=== PATIENT | male | born 1935 | race Caucasian/White ===

== ENCOUNTER 2017-01-03 15:36 | Inpatient (IN) | payer MEDICARE, BC ==
[~2017-01-03] VITALS: Ht 172.7 cm; Wt 88.5 kg
[2017-01-03 18:20] VITALS: BP 166/76
[2017-01-03 19:00] VITALS: BP 155/76
[2017-01-03] MEDS ORDERED: POLYETHYLENE GLYCOL 3350 17 GM PACKET. PO PRN (19:45)
[2017-01-03] MEDS ORDERED: fentaNYL PF VIAL 100 MCG/2 ML VIAL IV PRN (19:45)
[2017-01-03] MEDS ORDERED: ACETAMINOPHEN 325 MG TABLET. PO PRN (19:45)
[2017-01-03] MEDS ORDERED: traMADol 50 MG TABLET PO PRN (19:45)
[2017-01-03] MEDS ORDERED: ONDANSETRON PF 4 MG/2 ML VIAL. IV PRN (19:45)
[2017-01-03] MEDS: CYCLOBENZAPRINE 10 MG TABLET. PO SCH (21:00)
[2017-01-03] MEDS: ATORVASTATIN CALCIUM 20 MG TABLET PO SCH (21:13)
[2017-01-03 23:19] VITALS: BP 157/71
[2017-01-03] MEDS ORDERED: PANT40TA3 PO (23:24)
[2017-01-04 03:24] VITALS: BP 135/70
[2017-01-04 05:59] LABS: BASO # 0.1 x10^3/uL (0.0-0.2); BASO % 1 % (0-3); EOS % 4 % (0-3); HEMATOCRIT 37.9 % (39.0-53.0); HEMOGLOBIN 12.6 g/dL (13.0-17.5); LYMPH # 1.2 x10^3/uL (1.0-4.8); LYMPH % 17 % (24-48); MEAN CORPUSCULAR HEMOGLOBIN 30 pg (25-35); MEAN CORPUSCULAR HGB CONC 33 g/dL (31-37); MEAN CORPUSCULAR VOLUME 90 fL (79-100); MONO % 13 % (0-9); NEUT % 65 % (31-73); PLATELET COUNT 217 x10^3/uL (140-400); RED BLOOD COUNT 4.21 x10^6/uL (4.30-5.70); RED CELL DISTRIBUTION WIDTH 14.2 % (11.5-14.5); WHITE BLOOD COUNT 7.1 x10^3/uL (4.0-11.0)
[2017-01-04 06:24] LABS: ALBUMIN 2.9 g/dL (3.4-5.0); ALBUMIN/GLOBULIN RATIO 0.8 (1.0-1.7); CALCIUM 8.7 mg/dL (8.5-10.1); GFR 71.4; POTASSIUM 3.9 mmol/L (3.5-5.1); TOTAL BILIRUBIN 0.7 mg/dL (0.2-1.0); TOTAL PROTEIN 6.4 g/dL (6.4-8.2)
[2017-01-04 07:00] VITALS: BP 155/73
[2017-01-04] MEDS: FLUTICASONE 50MCG/NASAL SPRAY 16GM BOTTLE. NS SCH (09:00)
[2017-01-04] MEDS: PANTOPRAZOLE 40 MG TABLET.DR. PO SCH (09:11)
[2017-01-04] MEDS: hydroCHLOROthiazide 25 MG TABLET PO SCH (09:11)
[2017-01-04 11:00] VITALS: BP 141/81
[2017-01-04 15:00] VITALS: BP 147/75
--- NOTE | 2017-01-04 16:51 | HP ---
ADMIT DATE: 01/04/2017 HISTORY OF PRESENT ILLNESS: The patient is an 81-year-old male patient who came to the Emergency Room of [facility] complaining of pain in his left hip. He apparently was seen for the same problem on 12/31/2016 with no history of trauma or fall. X-ray was performed and was given cyclobenzaprine. The patient stated that he has not improved and he cannot get around at home at all. He, in fact, called 911 due to pain and inability to ambulate. The pain is centered in his left hip area with no radiation, worse with ambulation and bending. No fever, no abdominal pain, no nausea or vomiting. He stated that he uses a walker occasionally, but since this pain started, he has been using it all the time. According to him, the pain has been on and off since 04/2016. On questioning him, the pain is mostly in the left lumbar area and radiating down. PAST MEDICAL HISTORY: Significant for hypertension, hyperlipidemia. He has prostate cancer and colon cancer. He apparently has bilateral foot drop and has peripheral vascular disease, for which he is on Plavix, although he has never had any arteriogram, angioplasty, or bypass graft. PAST SURGICAL HISTORY: Significant for cholecystectomy, partial colectomy. His prostate cancer was treated with radiation seeds and 42 sessions of radiotherapy and he was treated with Lupron every 3 months for 3 years. Last injection was about 5 years ago. He was followed by Dr. Castlelon and also by the Oncology team at [facility]. He has had also tonsillectomy and colonoscopy. ALLERGIES: MORPHINE. MEDICATIONS: He is currently on atorvastatin 20 mg at bedtime, Plavix 75 mg once a day, cyclobenzaprine 5 mg at bedtime, Flonase 1 spray to each nostril twice a day, hydrochlorothiazide 25 mg once a day, omeprazole 40 mg once a day, polyethylene glycol 17 grams daily, tramadol 50 mg every 6 hours, and Ambien 5 mg at bedtime. FAMILY HISTORY: He had one older brother who of complication of diabetes, one older sister of motor vehicle accident, a younger sister also was , but he does not know the cause of . His father at age of 84 and mother at age of 33 because of heart problem. SOCIAL HISTORY: He is and lives alone with his dog. He has 2 sons and many grandchildren. He does not smoke or drink alcohol. He worked in the [employer] office for 30 years. He also is a [employer] and [employer] . REVIEW OF SYSTEMS: The patient denied any blurring of vision, cataract, glaucoma or macular degeneration. Denied any earache, tinnitus, or sensorineural deafness. Denied any nosebleeds, stuffy nose, or postnasal drip. Denied any sore throat, sore tongue, toothache, hoarseness of voice, or difficulty swallowing. Denied any nausea, vomiting, diarrhea or constipation. Denied any hematemesis, melena, or hematochezia. Denied any dysuria, frequency, or hematuria. Did complain of nocturia 3 times per night. Denied any chest pain, shortness of breath, orthopnea, paroxysmal nocturnal dyspnea. Denied any cough, phlegm or hemoptysis. Denied any chills, rigors, or fever. Denied any dizziness, lightheadedness, or vertigo. Did complain of lower back pain and difficulty walking. PHYSICAL EXAMINATION: GENERAL: When I examined him today, he was resting slightly propped up in bed, in no apparent respiratory distress, slightly pale, but not jaundiced. No cyanosis or thyromegaly. No jugular venous distention. No limb edema. VITAL SIGNS: His heart rate was 69, blood pressure 162/62, temperature was 98.2, respiratory rate was 20, and oxygen saturation was 96% on room air. HEAD, EYES, EARS, NOSE, AND THROAT: Normocephalic, atraumatic. NECK: Supple. HEART: Showed normal first and second heart sounds with no gallop, rub or murmur. CHEST: Clear to auscultation. No crepitation or rhonchi. ABDOMEN: Distended, soft, nontender. No guarding or rigidity. No organomegaly. All hernial orifices intact. Bowel sounds normal. NEUROLOGIC: He was awake, alert, oriented to time, place and person. Cranial nerves intact. EXTREMITIES: He moves upper extremities without difficulty. He definitely has bilateral foot drop and walks with a walker. He still continues to complain of severe low back pain and pain in the center in the left lower lumbar area, radiating down to his hip area and thigh. LABORATORY DATA: Showed a white cell count 9500, hemoglobin 13.8, hematocrit 40, MCV 88, and platelet count ____. His chemistry showed serum sodium 143, potassium 3.7, chloride 107, bicarbonate 30, anion gap of 6, BUN 13, creatinine 1, estimated GFR was 71 mL per minute. His glucose 112, calcium was 8.8. Total bilirubin, AST, ALT, alkaline phosphatase were normal. Total protein 7.2, albumin 3.5. ASSESSMENT AND PLAN: In summary, this is an 81-year-old male patient. The patient has been complaining of low back pain since 04/2016 on and off, difficulty walking. The pain is worse on bending and now he uses a walker. He has had a CT scan, which showed that the patient has no acute pelvic fracture, no acute compression fracture of the lumbar spine; however, he has degenerative spondylosis of L3-L4, L4-L5. There is probably severe bilateral neural canal and neural foraminal narrowing at L4-L5, broad-based posterior disk osteophytic complex, severe ligamentum flavum redundancy, mild facet hypertrophy and central canal stenosis probably severe and probably severe bilateral neural foraminal narrowing. The patient was transferred to [facility] to arrange for an MRI of the lumbosacral spine and to consult the neurosurgical team to see if there is any surgical intervention needed. I did hold his Plavix. We will start him on SCD and continue with all his other medications. ELLEN REINOSO MD DR: MICHELLE/umesh JOB#: [id number] / [id number]
[2017-01-04 19:00] VITALS: BP 149/68
[2017-01-04] MEDS: ATORVASTATIN CALCIUM 20 MG TABLET PO SCH (20:48)
[2017-01-04] MEDS: CYCLOBENZAPRINE 10 MG TABLET. PO SCH (20:48)
[2017-01-04 23:56] VITALS: BP 135/80
[2017-01-05 03:44] VITALS: BP 137/93
[2017-01-05 07:00] VITALS: BP 136/70
[2017-01-05] MEDS: hydroCHLOROthiazide 25 MG TABLET PO SCH (09:28)
[2017-01-05] MEDS: PANTOPRAZOLE 40 MG TABLET.DR. PO SCH (09:28)
[2017-01-05] MEDS: FLUTICASONE 50MCG/NASAL SPRAY 16GM BOTTLE. NS SCH (09:28)
[2017-01-05 11:00] VITALS: BP 144/74
[2017-01-05 15:00] VITALS: BP 149/75
--- NOTE | 2017-01-05 15:08 | PDOC ---
Provider Note Provider Note Patient seen and examined. C/o back, left flank and left leg pain. Exam with bilateral foot drop. Lumbar CT appears to have significant stenosis at L4-5 and moderate stenosis at L3-4. Bone scan today. Lumbar MRI tomorrow. D/W Dr. Stevenson. Full consult to follow. DANETTE GREEN MD Jan 05, 2017 15:08
[2017-01-05 19:00] VITALS: BP 167/89
[2017-01-05] MEDS: CYCLOBENZAPRINE 10 MG TABLET. PO SCH (21:00)
[2017-01-05] MEDS: ATORVASTATIN CALCIUM 20 MG TABLET PO SCH (21:17)
[2017-01-05 23:58] VITALS: BP 141/62
--- NOTE | 2017-01-06 00:55 | PN ---
DATE: 01/05/2017 SUBJECTIVE: The patient is resting, slightly propped up in bed, in no apparent respiratory distress. He is awake, alert, continues to complain of back pain and difficulty walking. PHYSICAL EXAMINATION: GENERAL: When I examined him, he looked well, slightly pale, but no jaundice, cyanosis, or thyromegaly. No jugular venous distention. No limb edema. VITAL SIGNS: His heart rate was 76, blood pressure 144/74, temperature was 97.7, respiratory rate was 20, and oxygen saturation was 96%. HEAD, EYES, EARS, NOSE AND THROAT: Normocephalic, atraumatic. NECK: Supple. HEART: Showed normal first and second heart sounds with no gallop, rub or murmur. CHEST: Clear to auscultation. No crepitation or rhonchi. ABDOMEN: Distended, soft, nontender. No guarding or rigidity. No organomegaly. All hernial orifices intact. Bowel sounds normal. NEUROLOGIC: He was awake, alert, responding appropriately. Cranial nerves intact. He moves his upper extremities without difficulty. He has bilateral foot drop. He is now walking with a walker. His intake over the last 24 hours was 760, output . LABORATORY DATA: Showed a white cell count 7100, hemoglobin 13, hematocrit , MCV 90 and platelet count of 217,000. His chemistry showed a BUN of 14, creatinine 1. ASSESSMENT AND PLAN: The patient was seen by Dr. Champion and given the different sites of pain, especially in the left lower lumbar area. Given the fact that he has a history of prostate cancer and colon cancer, decision was made to arrange for him to have a total body bone scan and hopefully the MRI machine will be working tomorrow to do the MRI of his lumbar spine as he has severe stenosis at L5-S1. Once, we have exclude any possibility of metastases and the MRI will be available, obviously a decision will be made by Dr. Champion to see whether he needs any surgical intervention. ELLEN REINOSO MD DR: MICHELLE/umesh JOB#: [id number] / [id number]
[2017-01-06 03:00] VITALS: BP 143/72
[2017-01-06 05:16] LABS: HEMATOCRIT 41.6 % (39.0-53.0); HEMOGLOBIN 14.1 g/dL (13.0-17.5); RED BLOOD COUNT 4.68 x10^6/uL (4.30-5.70); RED CELL DISTRIBUTION WIDTH 13.9 % (11.5-14.5); WHITE BLOOD COUNT 8.3 x10^3/uL (4.0-11.0)
[2017-01-06 06:05] LABS: ALBUMIN 3.4 g/dL (3.4-5.0); ALBUMIN/GLOBULIN RATIO 0.9 (1.0-1.7); C-REACTIVE PROTEIN 10.5 mg/L (0-3.3); CALCIUM 8.8 mg/dL (8.5-10.1); GFR 71.4; POTASSIUM 3.6 mmol/L (3.5-5.1); TOTAL BILIRUBIN 0.9 mg/dL (0.2-1.0); TOTAL PROTEIN 7.2 g/dL (6.4-8.2)
[2017-01-06 07:00] VITALS: BP 115/75
[2017-01-06] MEDS: hydroCHLOROthiazide 25 MG TABLET PO SCH (08:52)
[2017-01-06] MEDS: FLUTICASONE 50MCG/NASAL SPRAY 16GM BOTTLE. NS SCH (08:52)
[2017-01-06] MEDS: PANTOPRAZOLE 40 MG TABLET.DR. PO SCH (08:52)
[2017-01-06] MEDS ORDERED: HYDR-2758 PO (12:29)
[2017-01-06] MEDS ORDERED: CYCL5TAB PO (12:29)
--- NOTE | 2017-01-06 17:00 | RAD ---
Radionuclide bone scan, 01/06/2017: History: Back and left leg pain, previous prostate and colon cancer Whole body imaging was performed following IV injection of 25 mCi of technetium 99m MDP. No previous bone scan is available at this time for correlative purposes. The following findings are delineated on today's exam: 1. Increased activity at both shoulders, knees and both sternoclavicular articulations is compatible with arthritis. 2. Mildly increased activity at several levels in the mid and lower lumbar spine is likely arthritic in nature. Correlation with CT or MR findings may be helpful in this patient with a history of back pain. 3. Activity of the radionuclide about the skeleton and major joints is otherwise unremarkable.
--- NOTE | 2017-01-07 06:45 | DS ---
DATE OF DISCHARGE: 01/06/2017 HOSPITAL COURSE: The patient is an 81-year-old male patient, whom I had seen initially at [facility] with severe back pain and left leg pain. He had a CT scan done there that showed a severe stenosis at L4-5 and moderate stenosis at L3-4. He has bilateral foot drop. We planned to do an MRI; unfortunately, the machine is out of work. I did a bone scan, but it is unlikely for the MRI to be up and working today or tomorrow and therefore, the patient was discharged with a plan to arrange for him to have an MRI as an outpatient as well as and also to make an appointment for him to be seen by Dr. Champion as an outpatient perhaps next week. PHYSICAL EXAMINATION: GENERAL: When I saw him today, he looked well and was clearly in no apparent respiratory distress, slightly pale, but no jaundice or cyanosis, no thyromegaly, no jugular venous distention, and no limb edema. VITAL SIGNS: His heart rate was 76, blood pressure was 115/75, temperature was 97.5, respiratory rate was 18, and oxygen saturation was 96%. HEAD, EYES, EARS, NOSE, AND THROAT: Showed normocephalic, atraumatic. NECK: Supple. HEART: Showed normal first and second heart sounds with no gallop, rub, or murmur. CHEST: Clear to auscultation. No crepitation or rhonchi. ABDOMEN: Distended, soft, and nontender. NEUROLOGIC: He was awake, alert, and responding appropriately. Cranial nerves are intact. He moved his upper extremities to a much greater extent than lower extremities. He basically has bilateral foot drop and he uses a walker to be able to walk. LABORATORY DATA: As of this morning, showed a white cell count of 8300, hemoglobin 14.1, hematocrit 41.6, MCV 89, and platelet count 236,000. His chemistry showed a serum sodium of 142, potassium 3.6, chloride 104, bicarbonate 31, anion gap of 7, BUN 16, creatinine 1, and estimated GFR was 71 mL per minute. His glucose was 113, calcium was 8.8. Total bilirubin, AST, ALT, and alkaline phosphatase were normal. Her C-reactive protein was 10.5. Total protein was 7.2 and albumin 3.4. DISCHARGE MEDICATIONS: The patient was discharged home to continue on his hydrochlorothiazide 25 mg once a day, Flonase 2 sprays to each nostril once a day, Protonix 40 mg once a day, cyclobenzaprine 5 mg at bedtime, atorvastatin 20 mg at bedtime and tramadol 50 mg every 6 hours. I did also give him a prescription for hydrocodone/APAP 5/325. FINAL DISCHARGE DIAGNOSES: Significant stenosis at L4-5 and moderate stenosis at L3-4 with back pain, left flank and left leg pain and bilateral foot drop. Other medical problems include hypertension; hyperlipidemia; prostate cancer, treated with radiation therapy; colon cancer, status post partial colectomy; peripheral vascular disease, for which he is on Plavix. DISCHARGE INSTRUCTIONS: I will arrange for him to have an MRI as an outpatient and also arrange for an appointment for him to be seen by Dr. Champion to decide on further management. ELLEN REINOSO MD DR: MICHELLE/umesh JOB#: [id number] / [id number]
== END 2017-01-06 13:50 | disposition home or self-care (01) | DRG 551 ==
LOC: 4 NORTH 18:40
PROVIDERS: ADMIT Internal Medicine; ATTEND Internal Medicine
DX: M48.06 Spinal stenosis, lumbar region (principal); E43 Unspecified severe protein-calorie malnutrition; E78.5 Hyperlipidemia, unspecified; I10 Essential (primary) hypertension; M21.372 Foot drop, left foot; M21.371 Foot drop, right foot; M79.605 Pain in left leg; M25.552 Pain in left hip; M47.896 Other spondylosis, lumbar region; M54.5 Low back pain; R26.2 Difficulty in walking, not elsewhere classified; I73.9 Peripheral vascular disease, unspecified; Z79.02 Long term (current) use of antithrombotics/antiplatelets; Z83.3 Family history of diabetes mellitus; Z85.038 Personal history of other malignant neoplasm of large intestine; Z85.46 Personal history of malignant neoplasm of prostate; Z90.49 Acquired absence of other specified parts of digestive tract; Z92.3 Personal history of irradiation; Z88.5 Allergy status to narcotic agent
CPT/HCPCS: 36415; 78306; 80053; 85027; 86140; 96374; A9503

== ENCOUNTER → 2017-01-12 | Outpatient (CLI) | payer MEDICARE, BC ==
[2017-01-06 07:00] VITALS: BP 115/75
[~2017-01-12] MED LIST: CYCL5TAB PO; HYDR-2758 PO; PANT40TA3 PO
--- NOTE | 2017-01-12 13:42 | KCIC ---
INDICATION: Left-sided low back pain. Left hip pain. Symptoms for about a year. TECHNIQUE: Sagittal T1, sagittal T2, sagittal STIR, axial T1, and axial T2 sequences are provided. No comparison is available. FINDINGS: There is no malalignment. There is mild marrow heterogeneity. There is no worrisome marrow lesion. There is mild endplate edema which is greatest at L2-L3. There is diffuse disc desiccation. There is narrowing of disc height greatest at L2-L3 and L3-L4. The conus medullaris is normal in signal intensity and in position. Subcutaneous edema is noted. Probable cyst in the lower pole of the right kidney measures 4.9 cm. The numbering system assumes 5 lumbar type vertebral bodies. Findings by individual level are as follows: L1-L2: Minimal disc bulge and facet hypertrophy are noted without canal or foraminal compromise. L2-L3: Disc osteophyte complex and facet hypertrophy are noted. Midline AP diameter of the thecal sac is narrowed to 9-10 mm. There is lateral recess narrowing on the left. There is mild to moderate bilateral foraminal narrowing. L3-L4: There is a disc osteophyte complex. There is facet and ligamentum flavum hypertrophy. Epidural fat is prominent. Thecal sac is moderate to severely compressed, midline AP diameter of the thecal sac 5 mm. There is minimal CSF surrounding the nerve roots. Foraminal narrowing is moderate to severe on the left and moderate on the right. L4-L5: Disc osteophyte complex and facet and ligamentum flavum hypertrophy are noted with moderate canal stenosis and with lateral recess narrowing which is greater on the left. Foraminal narrowing is high-grade on the left and [id number] on the right. L5-S1: Disc osteophyte complex has a right paracentral spur. There is mild right lateral recess narrowing. There is mild bilateral foraminal narrowing. IMPRESSION: Degenerative disc disease and facet and ligamentum flavum hypertrophy are noted throughout the lumbar spine. Canal stenosis is greatest at L3-L4. Electronically signed by: Stef Harkins MD (01/12/2017 1:38 PM) [id number]
== END | disposition home or self-care (01) ==
LOC: KCIC MRI 12:33
PROVIDERS: ATTEND Internal Medicine
DX: M51.36 Other intervertebral disc degeneration, lumbar region (principal); M48.06 Spinal stenosis, lumbar region; M25.552 Pain in left hip
CPT/HCPCS: 72148